=== PATIENT | female | born 1955 | race Caucasian/White ===

== ENCOUNTER 2022-01-12 13:53 | Inpatient (IN) | payer OTHER ==
[2022-01-12 14:46] LABS: #Basophils 0.1 10x3/uL (0.0-0.2); #Eosinphils 0.1 10x3/uL (0.0-0.5); #Monocytes 0.8 10x3/uL (0.0-1.1); #Neutrophils 5.9 10x3/uL (1.5-8.4); %Basophils 0.6 % (0.0-2.0); %Lymphocytes 15.3 % (18.0-47.0); %Monocytes 9.9 % (0.0-10.0); %Neutrophils 72.7 % (40.0-75.0); Mean Corpuscular HGB CONC 34.8 g/dL (32.0-36.0); Mean Corpuscular Hemoglobin 31.2 pg (27.0-33.0); Mean Corpuscular Volume 89.5 fl (81.6-98.3); Mean Platelet Volume 11.6 fl (7.4-10.4); Platelet Count 187 10x3/uL (150-450); RBC Distribution Width 12.3 % (11.5-14.5); Red Blood Cell (RBC) Count 4.49 10x6/uL (3.90-5.03); White Blood Cell (WBC) Count 8.1 10x3/uL (3.5-10.5)
[2022-01-12 14:54] LABS: PTT 26.5 sec (22.0-33.0); Prothrombin Time 10.7 sec (9.5-12.1)
[2022-01-12 14:59] LABS: ALT (SGPT) 25 U/L (8-55); AST (SGOT) 25 U/L (5-34); Albumin 4.5 g/dL (3.4-4.8); Alkaline Phosphatase 101 U/L (40-110); Anion Gap 15 mmol/L (10-20); BUN (Urea Nitrogen) 35 mg/dL (9.8-20.1); Bilirubin, Total 0.6 mg/dL (0.2-1.2); CK (CPK) 150 U/L (29-168); Calc. Creatinine Clearance 0 mL/min (70-130); Calcium 9.3 mg/dL (7.8-10.44); Carbon Dioxide 22 mmol/L (23-31); Chloride 105 mmol/L (98-107); Estimated GFR 29; Globulin 2.3 g/dL (2.4-3.5); Glucose 147 mg/dL (80-115); Potassium 4.4 mmol/L (3.5-5.1); Protein, Total 6.8 g/dL (5.8-8.1); Sodium 138 mmol/L (136-145)
[2022-01-12 15:09] LABS: Acetaminophen Less than 10.0 mcg/mL (10.0-30.0); Alcohol Less than 10 mg/dL (Less than 10); Salicylate Less than 8.0 mg/dL (15.0-30.0)
[2022-01-12 15:28] LABS: Bilirubin 1+ (Negative); Blood, Urine 10 (Negative); Glucose, Urine (Dipstick) Normal (Negative); Ketone, Urine 5 mg/dL (Negative); Leukocyte 25 (Negative); Nitrite Negative (Negative); Protein, Urine (Dipstick) 30 mg/dl (Neg-Trace)
[2022-01-12 15:29] LABS: Clarity Hazy (Clear)
[2022-01-12 15:36] LABS: Amphetamine Not Detected (NotDetected); Barbiturates Screen Not Detected (NotDetected); Benzodiazepine Screen Not Detected (NotDetected); Cocaine Metabolite Screen Not Detected (NotDetected); Methadone Not Detected (NotDetected); Methamphetamine Not Detected (NotDetected); Opiate Screen Not Detected (NotDetected); Oxycodone Screen Not Detected (NotDetected); Phencyclidine (PCP) Not Detected (NotDetected); THC/Cannabinoid Screen Detected (NotDetected); Tricyclic Screen Not Detected (NotDetected)
[2022-01-12 15:44] LABS: Bacteria/HPF 1+ HPF (None Seen); Calcium Oxalate Crystals 2+ HPF (None Seen); Mucous/LPF Rare LPF (<2+); RBC/HPF 0-3 HPF (0-3); Squamous Epithelial 0-3 HPF (0-3); WBC/HPF 0-3 HPF (0-3)
[2022-01-12 16:02] LABS: Actual Bicarbonate (HCO3a) 25.1 mEq/L (22-28); Base Excess (BEa) -0.9 mEq/L (-2.0 to +3.0); CO2 Tension 46.9 mmHg (35.0-45.0); Calcium, Ionized (arterial) 1.17 mmol/L (1.12-1.30); Carboxyhemoglobin (COHb) 4.5 gm% (0.0-3.0); Hemoglobin (Hb) 14.5 g/dL (12.0-16.0); O2 Tension (PaO2), arterial 66.7 mmHg (> 80.0); Potassium - ABG Lab 4.2 mmol/L (3.70-5.30); Puncture Site RRA; pH, Arterial 7.35 (7.35-7.45)
[2022-01-12 16:05] LABS: ALV-art Gradient 24.405 mmHg (0-20)
[2022-01-12] MEDS ORDERED: Acetaminophen 325 MG TAB PO PRN (18:05)
[2022-01-12 18:06] LABS: SARS-CoV-2 NAA Rapid Test Not Detected (NotDetected)
[2022-01-12 22:14] VITALS: BMI 40.6
[2022-01-12] MEDS ORDERED: Famotidine/PF 20 mg/2ml Vial SLOW IVP SCH (22:30)
[2022-01-12] MEDS ORDERED: cefTRIAXone\\ROCEPHIN 1 GM in Sodium Chloride 0.9% 100 ML IVPB SCH (23:00)
[2022-01-12] MEDS ORDERED: Lactated Ringer's 1,000 ML IV SCH (23:59)
[2022-01-13 04:28] VITALS: TEMP 97.5
[2022-01-13 04:44] LABS: #Eosinphils 0.2 10x3/uL (0.0-0.5); #Monocytes 0.7 10x3/uL (0.0-1.1); #Neutrophils 5.7 10x3/uL (1.5-8.4); %Basophils 0.5 % (0.0-2.0); %Eosinophils 2.3 % (0.0-6.0); %Lymphocytes 15.7 % (18.0-47.0); %Monocytes 8.3 % (0.0-10.0); %Neutrophils 72.8 % (40.0-75.0); Hemoglobin 13.7 g/dL (12.0-15.5); Mean Corpuscular HGB CONC 34.2 g/dL (32.0-36.0); Mean Corpuscular Hemoglobin 30.1 pg (27.0-33.0); Mean Corpuscular Volume 88.1 fl (81.6-98.3); Mean Platelet Volume 11.2 fl (7.4-10.4); Platelet Count 162 10x3/uL (150-450); RBC Distribution Width 12.4 % (11.5-14.5); Red Blood Cell (RBC) Count 4.55 10x6/uL (3.90-5.03); White Blood Cell (WBC) Count 7.8 10x3/uL (3.5-10.5)
[2022-01-13 04:55] LABS: Anion Gap 15 mmol/L (10-20); BUN (Urea Nitrogen) 24 mg/dL (9.8-20.1); Calc. Creatinine Clearance 71 mL/min (70-130); Carbon Dioxide 22 mmol/L (23-31); Chloride 108 mmol/L (98-107); Estimated GFR 49; Glucose 124 mg/dL (80-115); Sodium 141 mmol/L (136-145)
[2022-01-13 07:35] VITALS: BP 138/71
[2022-01-13] MEDS ORDERED: Enoxaparin Sodium 40 MG/0.4 ML SYRINGE SC SCH (09:00)
[2022-01-13] MEDS ORDERED: Famotidine/PF 20 mg/2ml Vial SLOW IVP SCH (21:00)
== END 2022-01-13 15:00 | disposition home or self-care (01) | DRG 917 ==
LOC: CSHERS 13:53 → CSHIMCU 22:00
PROVIDERS: ADMIT Student in an Organized Health Care Education/Training Program; ATTEND Hospitalist
PROC: 5A09357 Assistance with Respiratory Ventilation, Less than 24 Consecutive Hours, Continuous Positive Airway Pressure (ICD-10-PCS; principal; 2022-01-12)
DX: T40.711A Poisoning by cannabis, accidental (unintentional), initial encounter (principal); G92.8 Other toxic encephalopathy; J96.01 Acute respiratory failure with hypoxia; J96.02 Acute respiratory failure with hypercapnia; E87.20 Acidosis, unspecified; N17.9 Acute kidney failure, unspecified; J98.11 Atelectasis; Z20.822 Contact with and (suspected) exposure to COVID-19; E03.9 Hypothyroidism, unspecified; I10 Essential (primary) hypertension; J44.9 Chronic obstructive pulmonary disease, unspecified; F41.9 Anxiety disorder, unspecified; F32.A Depression, unspecified; F17.210 Nicotine dependence, cigarettes, uncomplicated; F12.10 Cannabis abuse, uncomplicated; I25.10 Atherosclerotic heart disease of native coronary artery without angina pectoris; G89.4 Chronic pain syndrome; Z79.02 Long term (current) use of antithrombotics/antiplatelets; Z90.710 Acquired absence of both cervix and uterus; Z88.2 Allergy status to sulfonamides; Z95.5 Presence of coronary angioplasty implant and graft; Z79.899 Other long term (current) drug therapy; Z79.890 Hormone replacement therapy; Z79.82 Long term (current) use of aspirin; Z88.0 Allergy status to penicillin
CPT/HCPCS: 36415; 36600; 51701; 70450; 71045; 80048; 80053; 80306; 80307; 81003; 81015; 82550; 82805; 83880; 84484; 85025; 85610; 85730; 87040; 87086; 93005; 94660; 94760; 96360; 96361; J0696; J1650; J3490; J7120; S0028

== ENCOUNTER 2022-04-19 08:41 | Observation (INO) | payer MEDICARE, OTHER ==
[2022-04-19 09:30] LABS: #Eosinphils 0.2 10x3/uL (0.0-0.5); #Monocytes 0.6 10x3/uL (0.0-1.1); #Neutrophils 5.2 10x3/uL (1.5-8.4); %Basophils 0.5 % (0.0-2.0); %Eosinophils 2.3 % (0.0-6.0); %Lymphocytes 18.8 % (18.0-47.0); %Monocytes 7.8 % (0.0-10.0); %Neutrophils 70.2 % (40.0-75.0); Hemoglobin 14.6 g/dL (12.0-15.5); Mean Corpuscular HGB CONC 33.9 g/dL (32.0-36.0); Mean Corpuscular Hemoglobin 30.7 pg (27.0-33.0); Mean Corpuscular Volume 90.5 fl (81.6-98.3); Mean Platelet Volume 12.1 fl (7.4-10.4); Platelet Count 183 10x3/uL (150-450); RBC Distribution Width 13.1 % (11.5-14.5); Red Blood Cell (RBC) Count 4.76 10x6/uL (3.90-5.03); White Blood Cell (WBC) Count 7.4 10x3/uL (3.5-10.5)
[2022-04-19 09:42] LABS: SARS-CoV-2 NAA Rapid Test Not Detected (NotDetected)
[2022-04-19 09:52] LABS: Acetaminophen Less than 10.0 mcg/mL (10.0-30.0); Alcohol Less than 10 mg/dL (Less than 10); Salicylate Less than 8.0 mg/dL (15.0-30.0)
[2022-04-19 10:00] LABS: CK (CPK) 181 U/L (29-168); CRP (Inflammatory) Less than 0.50 mg/dL (= or < 0.5); Lipase 19 U/L (8-78); Magnesium 2.5 mg/dL (1.6-2.6)
[2022-04-19 10:16] LABS: D-Dimer Test 0.2 mg/L FEU (0.19-0.50); PTT 27.3 sec (22.0-33.0); Prothrombin Time 10.4 sec (9.5-12.1)
[2022-04-19 10:25] LABS: ALT (SGPT) 24 U/L (8-55); AST (SGOT) 23 U/L (5-34); Albumin 4.3 g/dL (3.4-4.8); Alkaline Phosphatase 101 U/L (40-110); Anion Gap 12 mmol/L (10-20); BUN (Urea Nitrogen) 26 mg/dL (9.8-20.1); Bilirubin, Total 0.4 mg/dL (0.2-1.2); Calc. Creatinine Clearance 0 mL/min (70-130); Calcium 9.2 mg/dL (7.8-10.44); Carbon Dioxide 26 mmol/L (23-31); Chloride 102 mmol/L (98-107); Estimated GFR 44; Globulin 2.8 g/dL (2.4-3.5); Glucose 135 mg/dL (80-115); Potassium 4.6 mmol/L (3.5-5.1); Protein, Total 7.1 g/dL (5.8-8.1); Sodium 135 mmol/L (136-145)
[2022-04-19 11:00] LABS: Bilirubin Neg (Negative); Blood, Urine Negative (Negative); Clarity Clear (Clear); Glucose, Urine (Dipstick) Normal (Negative); Ketone, Urine Negative (Negative); Leukocyte Negative (Negative); Nitrite Negative (Negative); Protein, Urine (Dipstick) 15 mg/dl (Neg-Trace); Urobilinogen Normal mg/dL (Less than 2)
[2022-04-19 11:16] LABS: Amphetamine Not Detected (NotDetected); Barbiturates Screen Not Detected (NotDetected); Benzodiazepine Screen Detected (NotDetected); Cocaine Metabolite Screen Not Detected (NotDetected); Methadone Not Detected (NotDetected); Methamphetamine Not Detected (NotDetected); Opiate Screen Not Detected (NotDetected); Oxycodone Screen Not Detected (NotDetected); Phencyclidine (PCP) Not Detected (NotDetected); THC/Cannabinoid Screen Detected (NotDetected); Tricyclic Screen Not Detected (NotDetected)
[2022-04-19] MEDS ORDERED: Ondansetron PF 4 MG/2 ML Vial IVP PRN (13:25)
[2022-04-19] MEDS ORDERED: Ondansetron ODT 4 MG TAB PO PRN (13:25)
[2022-04-19 20:13] LABS: Hemoglobin A1c 5.8 % (4.0-6.0)
[2022-04-19 20:15] VITALS: BMI 36.5
[2022-04-19] MEDS ORDERED: FLU VACC QS2022-23(65YR UP)/PF 240 MCG/0.7 ML SYRINGE IM ONE (21:30)
[2022-04-19] MEDS ORDERED: Baclofen 10 MG TAB PO SCH (23:30)
[2022-04-19] MEDS ORDERED: hydrOXYzine 25 MG TAB PO SCH (23:30)
[2022-04-19] MEDS: Nicotine 14 MG PATCH TD SCH (23:42)
[2022-04-20] MEDS ORDERED: Levothyroxine Sodium 50 MCG TAB PO SCH (05:45)
[2022-04-20 08:20] LABS: #Eosinphils 0.2 10x3/uL (0.0-0.5); #Monocytes 0.6 10x3/uL (0.0-1.1); #Neutrophils 4.8 10x3/uL (1.5-8.4); %Basophils 0.6 % (0.0-2.0); %Eosinophils 2.3 % (0.0-6.0); %Monocytes 8.8 % (0.0-10.0); Hemoglobin 13.8 g/dL (12.0-15.5); Mean Corpuscular HGB CONC 33.5 g/dL (32.0-36.0); Mean Corpuscular Hemoglobin 30.4 pg (27.0-33.0); Mean Corpuscular Volume 90.7 fl (81.6-98.3); Mean Platelet Volume 11.5 fl (7.4-10.4); Platelet Count 162 10x3/uL (150-450); Red Blood Cell (RBC) Count 4.54 10x6/uL (3.90-5.03); White Blood Cell (WBC) Count 6.8 10x3/uL (3.5-10.5)
[2022-04-20 08:33] LABS: Anion Gap 14 mmol/L (10-20); BUN (Urea Nitrogen) 25 mg/dL (9.8-20.1); Calc. Creatinine Clearance 75 mL/min (70-130); Calcium 9.3 mg/dL (7.8-10.44); Carbon Dioxide 24 mmol/L (23-31); Cardiac Risk 2.7 (Less than 4.5); Chloride 104 mmol/L (98-107); Cholesterol 121 mg/dl (< 200 Desired); Estimated GFR 52; Glucose 129 mg/dL (80-115); HDL Cholesterol 45 mg/dL (>60 Neg Risk); LDL Cholesterol, Calculated 55 mg/dL; Potassium 4.5 mmol/L (3.5-5.1); Sodium 137 mmol/L (136-145); Triglycerides 103 mg/dL (Less than 150)
[2022-04-20] MEDS ORDERED: Aspirin 81 mg Enteric Coated Tablet PO SCH (09:00)
[2022-04-20] MEDS: Acetaminophen 325 MG TAB PO PRN ×2 (10:10→15:44)
[2022-04-20] MEDS: Nicotine 14 MG PATCH TD SCH (12:43)
[2022-04-20 22:41] VITALS: BP 119/76; TEMP 97.4
== END 2022-04-20 21:26 | disposition home or self-care (01) ==
LOC: CSHERS 08:41 → CSHERHOLD 13:27 → CSHTELE 17:16
PROVIDERS: ADMIT Hospitalist; ATTEND Hospitalist
DX: R25.1 Tremor, unspecified (principal); R41.82 Altered mental status, unspecified; I10 Essential (primary) hypertension; J44.9 Chronic obstructive pulmonary disease, unspecified; I25.10 Atherosclerotic heart disease of native coronary artery without angina pectoris; E03.9 Hypothyroidism, unspecified; Z20.822 Contact with and (suspected) exposure to COVID-19; E78.5 Hyperlipidemia, unspecified; G89.29 Other chronic pain; F41.9 Anxiety disorder, unspecified; F32.A Depression, unspecified; G93.40 Encephalopathy, unspecified; E66.9 Obesity, unspecified; F17.210 Nicotine dependence, cigarettes, uncomplicated; Z88.2 Allergy status to sulfonamides; Z79.02 Long term (current) use of antithrombotics/antiplatelets; Z79.899 Other long term (current) drug therapy; Z79.82 Long term (current) use of aspirin; Z95.5 Presence of coronary angioplasty implant and graft; Z68.36 Body mass index [BMI] 36.0-36.9, adult
CPT/HCPCS: 70450; 71045; 80048; 80061; 80306; 80307; 81003; 82550; 82962; 83036; 83605; 83690; 83735; 83880; 84146; 84484; 85025; 85379; 85610; 85730; 86140; 86850; 86900; 86901; 93005; 94760 ×2; 99285; U0002; 36415; 36416; 80053; 84443; G0378